=== PATIENT | male | born 1955 | race Two or more races ===

== ENCOUNTER 2022-10-25 21:18 | Inpatient (IN) | payer OTHER ==
[~2022-10-25] VITALS: Ht 165.1 cm; Wt 81.6 kg
[2022-10-25] MEDS ORDERED: AMLO2.5T4 PO (21:39)
[2022-10-25] MEDS ORDERED: PRAS10TA5 PO (21:39)
[2022-10-25] MEDS ORDERED: LOSA25TA27 PO (21:39)
[2022-10-25] MEDS ORDERED: METF-442 PO (21:39)
[2022-10-25] MEDS ORDERED: INSU100V7 SQ ×2 (21:39)
[2022-10-25] MEDS ORDERED: RANO500T3 PO (21:39)
[2022-10-25] MEDS ORDERED: IV NORMAL SALINE 1000 ML BAG IV ONE (21:45)
[2022-10-25] MEDS ORDERED: HYDROMORPHONE 1 MG/1 ML DISP.SYRIN IV ONE (21:45)
[2022-10-25] MEDS ORDERED: ONDANSETRON 4 MG/2 ML VIAL IV ONE (21:45)
[2022-10-25 22:00] LABS: HEMATOCRIT 35.5 % (36.7-47.1); MEAN CORPUSCULAR HEMOGLOBIN 32.7 uug (23.8-33.4); MEAN CORPUSCULAR VOLUME 96.8 fL (73.0-96.2); PLATELET COUNT (AUTO) 266 K/uL (152-348)
[2022-10-25] MEDS ORDERED: HYDROMORPHONE 1 MG/1 ML DISP.SYRIN ONE (22:13)
[2022-10-25] MEDS ORDERED: ONDANSETRON 4 MG/2 ML VIAL ONE (22:13)
[2022-10-25 22:49] LABS: CREATININE 1.7 mg/dL (0.6-1.3); POTASSIUM 4.4 mmol/L (3.5-5.1)
[2022-10-25 23:01] LABS: BILIRUBIN,DIRECT 0.2 mg/dL (0.0-0.2); BILIRUBIN,TOTAL 0.9 mg/dL (0.2-1.0); TOTAL PROTEIN, SERUM 7.5 g/dL (6.4-8.2)
[2022-10-26] MEDS ORDERED: IV NS 1000 ML 1,000 ML IV ONE (01:15)
--- NOTE | 2022-10-26 02:01 | NUR ---
CAlled [facility] for panel call. Will Chacon vocational evaluator.
[2022-10-26] MEDS ORDERED: MAGNESIUM HYDROXIDE 30 ML LIQUID UDC PO PRN (02:15)
[2022-10-26] MEDS ORDERED: ONDANSETRON 4 MG/2 ML VIAL IV PRN (02:15)
[2022-10-26] MEDS ORDERED: ACETAMINOPHEN 325 MG TABLET PO PRN (02:15)
--- NOTE | 2022-10-26 03:57 | NUR ---
Called third floor for bed number was told no beds available.
[2022-10-26 04:13] LABS: *BILIRUBIN,URIN NEGATIVE (NEGATIVE); *BLOOD, URINE NEGATIVE (NEGATIVE); *CLARITY,URINE CLEAR (CLEAR); *COLOR,URINE YELLOW (YELLOW); *KETONES,URINE TRACE (NEGATIVE); *UROBILINOGEN,URINE 0.2 E.U./dl (NORMAL); LEUKOCYTE ESTERASE ,URINE NEGATIVE (NEGATIVE); NITRITE, URINE NEGATIVE (NEGATIVE); PH,URINE 5.5 (5.0-8.0); UGLUCOSE TRACE (NEGATIVE)
[2022-10-26 04:14] LABS: BACTERIA,URINE FEW /HPF (NONE SEEN); RBC,URINE 0-3 /HPF (0-3); SQUAMOUS EPITHELIAL CELL,UR FEW /HPF (NONE SEEN); WBC,URINE 0-3 /HPF (0-3)
[2022-10-26 04:25] LABS: HEMATOCRIT 34.7 % (36.7-47.1); MEAN CORPUSCULAR HEMOGLOBIN 32.7 uug (23.8-33.4); MEAN CORPUSCULAR VOLUME 96.5 fL (73.0-96.2); PLATELET COUNT (AUTO) 265 K/uL (152-348)
[2022-10-26 04:41] LABS: CREATININE 1.7 mg/dL (0.6-1.3); MAGNESIUM 1.5 mg/dL (1.8-2.4); POTASSIUM 4.1 mmol/L (3.5-5.1); TOTAL PROTEIN, SERUM 7.1 g/dL (6.4-8.2)
[2022-10-26] MEDS ORDERED: PIPERACILLIN SODIUM/TAZOBACTAM 3.375 G in IV DEXTROSE 5% 50 ML IV SCH (06:00)
[2022-10-26] MEDS ORDERED: PIPERACILLIN/TAZOBACTAM/D5W 50 ML IV ONE (06:47)
--- NOTE | 2022-10-26 08:01 | NUR ---
PT IS RESTING IN BED COMFORTABLY. NO S/S OF DISTRESS A THIS TIME. CONTINUE TO MONITOR THE PT.
[2022-10-26] MEDS: IV NS 1000 ML 1,000 ML IV PRN ×2 (08:04→22:00)
[2022-10-26] MEDS ORDERED: DEXTROSE 50% 50 ML DISP.SYRIN IV PRN (10:15)
[2022-10-26] MEDS: BLOOD SUGAR DIAGNOSTIC 1 EACH STRIP VI SCH ×5 (11:53→22:00)
[2022-10-26] MEDS ORDERED: INSULIN REGULAR, HUMAN 300 UNIT/3 ML VIAL ONE (11:56)
[2022-10-26] MEDS ORDERED: ISOS30TA86 PO (12:01)
[2022-10-26] MEDS ORDERED: PRAS10TA9 PO (12:01)
[2022-10-26] MEDS ORDERED: RANO500T6 PO (12:01)
[2022-10-26] MEDS ORDERED: METO100T14 PO (12:02)
[2022-10-26] MEDS: INSULIN REGULAR, HUMAN 300 UNIT/3 ML VIAL SQ PRN ×3 (12:04→22:00)
[2022-10-26] MEDS: PIPERACILLIN SODIUM/TAZOBACTAM 3.375 G in IV DEXTROSE 5% 100 ML IV SCH ×2 (12:55→21:01)
[2022-10-26] MEDS ORDERED: MAGNESIUM OXIDE 400 MG TABLET PO ONE (13:00)
[2022-10-26] MEDS ORDERED: MAGNESIUM OXIDE 400 MG TABLET ONE (13:12)
[2022-10-26] MEDS ORDERED: ATOR80TA PO (15:40)
--- NOTE | 2022-10-26 19:09 | NUR ---
REPORT WAS GIVEN TO PORTRAIT PHOTOGRAPHER RN.
--- NOTE | 2022-10-26 20:10 | NUR ---
Attempted to call for a bed assignment from 3rd floor, charge nurse Sheridan did not give bed.
--- NOTE | 2022-10-26 20:20 | NUR ---
Daniel, the nursing green end department supervisor called stating " Give 3rd floor time to give bed assignment, because they have a registery nurse admitting patient and she is behind."
--- NOTE | 2022-10-26 20:45 | NUR ---
Sheridan RUIZsupercharger mechanic nurse called, will call back for bed assignment.
--- NOTE | 2022-10-26 20:54 | NUR ---
Patient ambulated to the restroom with a walker, NAD noted. Patient is a/ox4
--- NOTE | 2022-10-26 21:09 | NUR ---
Endorsed to Karolina RUIZ - m/s
[2022-10-26] MEDS ORDERED: ONDANSETRON 4 MG/2 ML VIAL ONE (21:18)
[2022-10-26] MEDS ORDERED: MORPHINE SULFATE 2 MG/1 ML DISP.SYRIN ONE (21:19)
[2022-10-26] MEDS: MORPHINE SULFATE 2 MG/1 ML DISP.SYRIN IV PRN (21:19)
[2022-10-26 21:30] VITALS: BP 126/58
--- NOTE | 2022-10-26 21:41 | NUR ---
Pt. admitted to [facility] , under care of Dr. Chacon Belongs List completed
[2022-10-27] MEDS: PIPERACILLIN SODIUM/TAZOBACTAM 3.375 G in IV DEXTROSE 5% 100 ML IV SCH ×3 (05:26→20:18)
[2022-10-27 06:43] LABS: HEMATOCRIT 34.3 % (36.7-47.1); MEAN CORPUSCULAR HEMOGLOBIN 32.8 uug (23.8-33.4); MEAN CORPUSCULAR VOLUME 96.3 fL (73.0-96.2); PLATELET COUNT (AUTO) 242 K/uL (152-348)
[2022-10-27 07:19] LABS: CREATININE 1.3 mg/dL (0.6-1.3); MAGNESIUM 1.8 mg/dL (1.8-2.4); PHOSPHOROUS 2.7 mg/dL (2.5-4.9); POTASSIUM 3.8 mmol/L (3.5-5.1)
--- NOTE | 2022-10-27 07:42 | NUR ---
Pt admitted to [facility] for Abdominal pain. pt is AOX4 denies pain tolerates well po fluids during the night, urinates QS no BM. Pt received Zosyn and continue with IVF infusing fine. No family to update plan of care. BS DONE 213 AND INSULIN WAS GIVEN. Pt slept well during the night Endorse care to incoming NURSE
[2022-10-27] MEDS: BLOOD SUGAR DIAGNOSTIC 1 EACH STRIP VI SCH ×4 (08:40→21:11)
[2022-10-27] MEDS: INSULIN REGULAR, HUMAN 300 UNIT/3 ML VIAL SQ PRN ×4 (08:43→21:13)
[2022-10-27] MEDS: MORPHINE SULFATE 2 MG/1 ML DISP.SYRIN IV PRN (08:43)
--- NOTE | 2022-10-27 08:43 | NUR ---
Alert, oriented x4. Reports of abdominal pain, medicated with Morphine with relief. IVF infusing.
[2022-10-27] MEDS ORDERED: ONDA4TAB5 PO (11:15)
[2022-10-27] MEDS ORDERED: CIPR-262 PO (11:15)
--- NOTE | 2022-10-27 12:00 | NUR ---
Noted sweating and nightmare after Morphine dose. BG cheched with Insulin sliding scale. Orthostatic BP checked and recorded.
[2022-10-27 12:22] VITALS: BP 150/65
[2022-10-27 12:24] VITALS: BP 141/63
[2022-10-27 12:25] VITALS: BP 152/67
[2022-10-27 16:05] VITALS: BP 118/57
[2022-10-27] MEDS ORDERED: METFORMIN HCL 500 MG TABLET PO ONE (18:00)
[2022-10-27] MEDS: RANOLAZINE 500 MG TAB.ER.12H PO SCH (18:14)
[2022-10-27] MEDS: IV NS 1000 ML 1,000 ML IV PRN (18:14)
--- NOTE | 2022-10-27 18:16 | NUR ---
Eating dinner. Denies chest pain or palpitation at this time. Home Medications still to be verified by Pharmacy. Metformin and Ranexa dose verified with patient.
[2022-10-27] MEDS ORDERED: METOPROLOL SUCCINATE XL 50 MG TAB.SR.24H PO ONE ×2 (18:30→20:45)
[2022-10-27 20:00] VITALS: BP 154/71
[2022-10-27] MEDS ORDERED: INSULIN GLARGINE,HUM 300 UNITS/3 ML CARTRIDGE SQ SCH (21:00)
--- NOTE | 2022-10-28 01:40 | NUR ---
PATIENT AWAKE, SITTING AT THE EDGE OF BED, VERBALIZING THAT HE IS UNABLE TO SLEEP. CALLED OUT TO BAM JHAVERI NP DIRECTOR CONTENT MARKETING FOR FURTHER ORDERS. RECEIVED NEW ORDERS.
[2022-10-28] MEDS ORDERED: TEMAZEPAM 7.5 MG CAPSULE PO PRN (01:45)
[2022-10-28 06:06] VITALS: BP 126/65
[2022-10-28] MEDS: PIPERACILLIN SODIUM/TAZOBACTAM 3.375 G in IV DEXTROSE 5% 100 ML IV SCH ×3 (06:13→20:39)
[2022-10-28] MEDS: BLOOD SUGAR DIAGNOSTIC 1 EACH STRIP VI SCH ×4 (06:22→20:39)
[2022-10-28 07:05] LABS: HEMATOCRIT 32.3 % (36.7-47.1); MEAN CORPUSCULAR HEMOGLOBIN 32.8 uug (23.8-33.4); MEAN CORPUSCULAR VOLUME 95.8 fL (73.0-96.2); PLATELET COUNT (AUTO) 265 K/uL (152-348)
[2022-10-28 07:54] LABS: CREATININE 1.2 mg/dL (0.6-1.3); MAGNESIUM 1.8 mg/dL (1.8-2.4); PHOSPHOROUS 2.8 mg/dL (2.5-4.9); POTASSIUM 3.8 mmol/L (3.5-5.1)
[2022-10-28] MEDS: INSULIN REGULAR, HUMAN 300 UNIT/3 ML VIAL SQ PRN ×4 (08:45→20:42)
[2022-10-28] MEDS: INSULIN GLARGINE,HUM 300 UNITS/3 ML CARTRIDGE SQ SCH (09:00)
[2022-10-28] MEDS ORDERED: PRASUGREL HCL 10 MG PO SCH (09:00)
[2022-10-28] MEDS ORDERED: INSULIN GLARGINE,HUM 300 UNITS/3 ML CARTRIDGE SQ SCH ×2 (09:09→21:00)
[2022-10-28] MEDS: RANOLAZINE 500 MG TAB.ER.12H PO SCH ×2 (09:15→17:07)
[2022-10-28] MEDS: METFORMIN HCL 500 MG TABLET PO SCH ×2 (09:15→17:08)
[2022-10-28] MEDS: ISOSORBIDE MONONITRATE 30 MG TAB.SR.24H PO SCH (09:16)
[2022-10-28] MEDS: LOSARTAN POTASSIUM 50 MG TABLET PO SCH (09:16)
[2022-10-28 09:19] VITALS: BP 134/64
[2022-10-28] MEDS ORDERED: ZOLPIDEM 5 MG TABLET PO PRN (11:00)
[2022-10-28] MEDS ORDERED: CLOPIDOGREL 75 MG TABLET PO ONE (11:30)
[2022-10-28 11:44] VITALS: BP 114/61
[2022-10-28] MEDS: METOPROLOL SUCCINATE XL 50 MG TAB.SR.24H PO SCH (12:13)
[2022-10-28 16:00] VITALS: BP 109/56
--- NOTE | 2022-10-28 17:38 | NUR ---
pt alert and oriented. ambulatory. in no acute distress.denies pain, nausea and vomiting. pt states he is feeling much better. self care. able to make needs known. elevated blood sugar noted. administered humulin r as directed. pt have a large bm today. all need attended. safety measure in placed. call light with in reach.
--- NOTE | 2022-10-28 20:00 | NUR ---
Received patient lying in bed. AAOX4. In no apparent distress. No complain of pain or SOB. IV site on left AC intact and patent. Needs assessed and attended to. Safety measure initiated and call light within reached.
[2022-10-28 20:41] VITALS: BP 116/63
[2022-10-29 03:54] VITALS: BP 125/59
[2022-10-29] MEDS: PIPERACILLIN SODIUM/TAZOBACTAM 3.375 G in IV DEXTROSE 5% 100 ML IV SCH ×2 (05:17→13:00)
[2022-10-29] MEDS: BLOOD SUGAR DIAGNOSTIC 1 EACH STRIP VI SCH ×2 (06:37→12:19)
[2022-10-29 08:05] VITALS: BP 136/66
[2022-10-29] MEDS ORDERED: ZOLP10TA2 PO (09:03)
[2022-10-29 09:13] VITALS: BP 136/66
[2022-10-29] MEDS: LOSARTAN POTASSIUM 50 MG TABLET PO SCH (09:31)
[2022-10-29] MEDS: METOPROLOL SUCCINATE XL 50 MG TAB.SR.24H PO SCH (09:31)
[2022-10-29] MEDS: RANOLAZINE 500 MG TAB.ER.12H PO SCH (09:31)
[2022-10-29] MEDS: METFORMIN HCL 500 MG TABLET PO SCH (09:32)
[2022-10-29] MEDS: ISOSORBIDE MONONITRATE 30 MG TAB.SR.24H PO SCH (09:33)
[2022-10-29] MEDS: INSULIN GLARGINE,HUM 300 UNITS/3 ML CARTRIDGE SQ SCH (09:35)
[2022-10-29 11:47] VITALS: BP 154/64
[2022-10-29] MEDS: INSULIN REGULAR, HUMAN 300 UNIT/3 ML VIAL SQ PRN (12:22)
--- NOTE | 2022-10-29 13:05 | NUR ---
pt is discharge. pt will go home with a caregiver. pt is hemodynamically stable. ambulatory. denies SOB or pain. front wheel walker was provided per pt request. exit care provided. discharge paper was sent with the pt. all belongings accounted for. pt will be pick by daughter via private car.
== END 2022-10-29 13:00 | disposition home or self-care (01) | DRG 391 ==
LOC: ER 21:18 → TRANSITION 10-26 06:29 → MEDSURG3 10-26 21:22 → MED 10-28 19:21
PROVIDERS: ADMIT Nurse Practitioner Family; ATTEND Nurse Practitioner Acute Care
DX: A08.4 Viral intestinal infection, unspecified (principal); N17.0 Acute kidney failure with tubular necrosis; E87.21 Acute metabolic acidosis; D68.59 Other primary thrombophilia; E66.01 Morbid (severe) obesity due to excess calories; Z68.30 Body mass index [BMI] 30.0-30.9, adult; D63.8 Anemia in other chronic diseases classified elsewhere; E11.65 Type 2 diabetes mellitus with hyperglycemia; I13.10 Hypertensive heart and chronic kidney disease without heart failure, with stage 1 through stage 4 chronic kidney disease, or unspecified chronic kidney disease; N18.9 Chronic kidney disease, unspecified; Z79.4 Long term (current) use of insulin; Z79.84 Long term (current) use of oral hypoglycemic drugs; E11.22 Type 2 diabetes mellitus with diabetic chronic kidney disease; Z90.49 Acquired absence of other specified parts of digestive tract; E78.5 Hyperlipidemia, unspecified; Z20.822 Contact with and (suspected) exposure to COVID-19; Z95.1 Presence of aortocoronary bypass graft; Z95.5 Presence of coronary angioplasty implant and graft
CPT/HCPCS: 36415; 71045; 83605; 83690; 83735; 84100; 85025; 86803; 87040; 87177; 87806; 89055; 93005; A4663; G0378; J1170; J1815; J2270; J2405; J2543; J7040